=== PATIENT | female | born 1990 | race American Indian/Alaskan Native ===

== ENCOUNTER 2018-08-27 17:46 | Emergency (ER) | payer OTHER ==
[2018-08-27 17:55] VITALS: BP 132/88
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
== END 2018-08-27 21:35 | disposition home or self-care (01) ==
LOC: ED 17:46
DX: S09.90XA Unspecified injury of head, initial encounter (principal); M54.2 Cervicalgia; V49.49XA Driver injured in collision with other motor vehicles in traffic accident, initial encounter; Y93.89 Activity, other specified; Y92.89 Other specified places as the place of occurrence of the external cause; Y99.8 Other external cause status
CPT/HCPCS: 99282

== ENCOUNTER 2019-02-28 02:13 | Emergency (ER) | payer MEDICAID, OTHER ==
[2019-02-28 03:15] LABS: Basophils % (Auto) 0.3 % (0.0-1.8); Eosinophils % (Auto) 0.1 % (0.0-4.3); Hematocrit 35.2 % (30.3-42.9); Hemoglobin 11.7 gm/dl (10.1-14.3); Lymphocytes # (Auto) 0.6 K/mm3 (1.2-5.4); Lymphocytes % (Auto) 6.3 % (13.4-35.0); Mean Corpuscular HGB Conc 33 % (30-34); Mean Corpuscular Volume 82 fl (79-97); Monocytes # (Auto) 0.4 K/mm3 (0.0-0.8); Monocytes % (Auto) 4.3 % (0.0-7.3); Platelet Count 271 K/mm3 (140-440); Red Blood Count 4.32 M/mm3 (3.65-5.03); Red Cell Distribution Width 16.4 % (13.2-15.2)
[2019-02-28 03:49] LABS: Alanine Aminotransferase 13 units/L (7-56); Albumin 3.9 g/dL (3.9-5); BUN/Creatinine Ratio 20; Blood Urea Nitrogen 10 mg/dL (7-17); Calcium 9.4 mg/dL (8.4-10.2); Hemolysis Index 10
[2019-02-28] MEDS ORDERED: NACL 0.9% 1000 ML 1,000 ML ONE (05:02)
[2019-02-28] MEDS ORDERED: ZOFRAN ONE (05:03)
[2019-02-28] MEDS ORDERED: NACL 0.9% 1000 ML 1,000 ML IV ONE ×2 (05:16→06:11)
[2019-02-28] MEDS ORDERED: ZOFRAN IV ONE (05:17)
[2019-02-28 05:22] VITALS: BP 104/55
--- NOTE | 2019-02-28 06:11 | Emergency Department Report ---
ED General Adult HPI - General Chief complaint: Dizziness Stated complaint: DIZZINESS, VOMITING Time Seen by Provider: 02/28/19 06:10 Source: patient Mode of arrival: Ambulatory Limitations: No Limitations - History of Present Illness Initial comments: 29-year-old female complains of lower abdominal cramping associated with diarrhea. She states that she ate some "bad pizza" yesterday afternoon. By 3:00 she was starting to have these symptoms. She denies vaginal discharge or bleeding. She is about 8 weeks by . She denies dysuria. She states that she is now 2 para 1 with no complications of previous and one live child. She denies any other medical problems. She has not unaware of her fever and not had chills. -: hour(s) Location: abdomen Radiation: non-radiation Severity scale (0 -10): 0 Quality: other (cramping) Consistency: now resolved Improves with: none Worsens with: none Associated Symptoms: denies other symptoms, other (diarrhea) Treatments Prior to Arrival: none - Related Data Previous Rx's Medication Instructions Recorded Last Taken Type Amoxicillin [Trimox CAP] 500 mg PO Q12HR #20 capsule 10/26/15 Unknown Rx Neomy/Polymyx B/Hc (Otic) Soln 4 drops TID #1 bottle 10/26/15 Unknown Rx [Cortisporin (Otic) Soln] traMADol [Ultram 50 MG tab] 50 mg PO Q6HR PRN #15 tablet 10/26/15 Unknown Rx Ketorolac [Toradol] 10 mg PO Q6H PRN #15 tablet 08/27/18 Unknown Rx Amoxicillin [Amoxicillin TAB] 875 mg PO BID #20 tablet 11/02/18 Unknown Rx Ciprofloxacin 0.2%(Nf) 2 drops TID 7 Days #1 droperette 11/02/18 Unknown Rx [Ciprofloxacin Otic 0.2%(Nf)] Allergies Allergy/AdvReac Type Severity Reaction Status Date / Time No Known Drug Allergies Allergy Unknown Verified 08/27/18 17:52 ED Review of Systems ROS: Stated complaint: DIZZINESS, VOMITING Other details as noted in HPI Constitutional: denies: chills, fever Eyes: denies: eye pain, eye discharge, vision change ENT: denies: ear pain, throat pain Respiratory: denies: cough, shortness of breath, wheezing Cardiovascular: denies: chest pain, palpitations Endocrine: no symptoms reported Gastrointestinal: abdominal pain, nausea, vomiting, diarrhea Genitourinary: denies: urgency, dysuria, discharge Musculoskeletal: denies: back pain, joint swelling, arthralgia Skin: denies: rash, lesions Neurological: denies: headache, weakness, paresthesias Psychiatric: denies: anxiety, depression Hematological/Lymphatic: denies: easy bleeding, easy bruising ED Past Medical Hx - Past Medical History Previous Medical History?: Yes Hx Hypertension: No Hx Congestive Heart Failure: No Hx Diabetes: No Hx Deep Vein Thrombosis: No Hx Renal Disease: No Hx Sickle Cell Disease: No Hx Seizures: No Hx Asthma: No Hx COPD: No Hx HIV: No Additional medical history: Hx of frequent ear infection - Surgical History Past Surgical History?: No - Social History Smoking Status: Never Smoker Substance Use Type: None - Medications Home Medications: Home Medications Medication Instructions Recorded Confirmed Last Taken Type Amoxicillin [Trimox CAP] 500 mg PO Q12HR #20 capsule 10/26/15 Unknown Rx Neomy/Polymyx B/Hc (Otic) Soln 4 drops TID #1 bottle 10/26/15 Unknown Rx [Cortisporin (Otic) Soln] traMADol [Ultram 50 MG tab] 50 mg PO Q6HR PRN #15 tablet 10/26/15 Unknown Rx Ketorolac [Toradol] 10 mg PO Q6H PRN #15 tablet 08/27/18 Unknown Rx Amoxicillin [Amoxicillin TAB] 875 mg PO BID #20 tablet 11/02/18 Unknown Rx Ciprofloxacin 0.2%(Nf) 2 drops TID 7 Days #1 droperette 11/02/18 Unknown Rx [Ciprofloxacin Otic 0.2%(Nf)] ED Physical Exam - General Limitations: No Limitations General appearance: alert, in no apparent distress - Head Head exam: Present: atraumatic, normocephalic - Eye Eye exam: Present: normal appearance. Absent: scleral icterus - ENT ENT exam: Present: mucous membranes moist - Neck Neck exam: Present: normal inspection. Absent: tenderness, meningismus - Respiratory Respiratory exam: Present: normal lung sounds bilaterally. Absent: respiratory distress - Cardiovascular Cardiovascular Exam: Present: regular rate, normal rhythm. Absent: systolic murmur, diastolic murmur, rubs, gallop - GI/Abdominal GI/Abdominal exam: Present: soft, normal bowel sounds. Absent: distended, tenderness, guarding, rigid, organomegaly, mass, bruit, pulsatile mass, hernia - Extremities Exam Extremities exam: Present: normal inspection - Back Exam Back exam: Present: normal inspection. Absent: CVA tenderness (R), CVA tenderness (L) - Neurological Exam Neurological exam: Present: alert, oriented X3, CN II-XII intact. Absent: motor sensory deficit - Psychiatric Psychiatric exam: Present: normal affect, normal mood - Skin Skin exam: Present: warm, dry, intact, normal color. Absent: rash ED Course Vital Signs 02/28/19 02/28/19 02/28/19 02:20 03:00 05:19 Temperature 100 F H Pulse Rate 125 H 104 H Respiratory 20 16 16 Rate Blood Pressure 128/66 Blood Pressure [Left] O2 Sat by Pulse 97 100 100 Oximetry 02/28/19 05:21 Temperature 98.7 F Pulse Rate 106 H Respiratory 16 Rate Blood Pressure Blood Pressure 104/55 [Left] O2 Sat by Pulse 100 Oximetry - Reevaluation(s) Reevaluation #1: States feels better after IV fluids. 02/28/19 07:26 Reevaluation #2: Distress. To be some subchorionic hemorrhage with a viable 11 week . Follow-up with OB will be necessary. Urine is equivocal. I will culture and place patient on Macrobid. 02/28/19 07:41 Reevaluation #3: Reviewed findings with the patient 02/28/19 07:52 ED Medical Decision Making - Lab Data Result diagrams: 02/28/19 03:01 02/28/19 03:01 Laboratory Results - last 24 hr 02/28/19 02/28/19 02/28/19 03:01 03:01 03:01 WBC 9.4 RBC 4.32 Hgb 11.7 Hct 35.2 MCV 82 MCH 27 L MCHC 33 RDW 16.4 H Plt Count 271 Lymph % (Auto) 6.3 L Burt % (Auto) 4.3 Eos % (Auto) 0.1 Baso % (Auto) 0.3 Lymph # 0.6 L Burt # 0.4 Eos # 0.0 Baso # 0.0 Seg Neutrophils % 89.0 H Seg Neutrophils # 8.4 H Sodium 135 L Potassium 4.1 Chloride 98.9 Carbon Dioxide 22 Anion Gap 18 BUN 10 Creatinine 0.5 L Estimated GFR > 60 BUN/Creatinine Ratio 20 Glucose 129 H Calcium 9.4 Total Bilirubin 0.30 AST 17 ALT 13 Alkaline Phosphatase 57 Total Protein 7.4 Albumin 3.9 Albumin/Globulin Ratio 1.1 HCG, Quant 70693 H Laboratory Results - last 24 hr 02/28/19 02/28/19 02/28/19 03:01 03:01 03:01 WBC 9.4 RBC 4.32 Hgb 11.7 Hct 35.2 MCV 82 MCH 27 L MCHC 33 RDW 16.4 H Plt Count 271 Lymph % (Auto) 6.3 L Burt % (Auto) 4.3 Eos % (Auto) 0.1 Baso % (Auto) 0.3 Lymph # 0.6 L Burt # 0.4 Eos # 0.0 Baso # 0.0 Seg Neutrophils % 89.0 H Seg Neutrophils # 8.4 H Sodium 135 L Potassium 4.1 Chloride 98.9 Carbon Dioxide 22 Anion Gap 18 BUN 10 Creatinine 0.5 L Estimated GFR > 60 BUN/Creatinine Ratio 20 Glucose 129 H Calcium 9.4 Total Bilirubin 0.30 AST 17 ALT 13 Alkaline Phosphatase 57 Total Protein 7.4 Albumin 3.9 Albumin/Globulin Ratio 1.1 HCG, Quant 47987 H Urine Color Urine Turbidity Urine pH Ur Specific [place] Urine Protein Urine Glucose (UA) Urine Ketones Urine Blood Urine Nitrite Urine Bilirubin Urine Urobilinogen Ur Leukocyte Esterase Urine WBC (Auto) Urine RBC (Auto) U Epithel Cells (Auto) Urine Mucus 02/28/19 06:03 WBC RBC Hgb Hct MCV MCH MCHC RDW Plt Count Lymph % (Auto) Burt % (Auto) Eos % (Auto) Baso % (Auto) Lymph # Burt # Eos # Baso # Seg Neutrophils % Seg Neutrophils # Sodium Potassium Chloride Carbon Dioxide Anion Gap BUN Creatinine Estimated GFR BUN/Creatinine Ratio Glucose Calcium Total Bilirubin AST ALT Alkaline Phosphatase Total Protein Albumin Albumin/Globulin Ratio HCG, Quant Urine Color Yellow Urine Turbidity Clear Urine pH 5.0 Ur Specific [place] 1.036 H Urine Protein <15 mg/dl Urine Glucose (UA) Neg Urine Ketones 80 Urine Blood Neg Urine Nitrite Neg Urine Bilirubin Neg Urine Urobilinogen < 2.0 Ur Leukocyte Esterase Neg Urine WBC (Auto) 2.0 Urine RBC (Auto) 2.0 U Epithel Cells (Auto) 3.0 Urine Mucus 1+ - Radiology Data FINDINGS: A single living intrauterine is present with recorded cardiac activity of 176 bpm and crown-rump length of approximately 4 cm, which corresponds to estimated gestational age of 11 weeks 0 days and delivery date of 09/19/2019. A small perigestational hemorrhage measures up to 2.5 cm and involves less than 50% of the gestational sac surface area. No significant free fluid in the pelvis. The cervix is not well visualized. A functional left ovarian cyst measures 2 cm in greatest dimension. The ovaries are otherwise sonographically unremarkable and measure 2.6 x 1.2 x 3.1 cm on the right and 3.2 x 2.2 x 3.3 cm on the left. IMPRESSION: Single living intrauterine with estimated gestational age of 11 weeks 0 days and delivery date of 09/19/2019. Small perigestational hemorrhage involving less than 50% of the gestational sac surface area. This document is electronically signed by Michael Gee MD., February 28 2019 07 :22:24 AM ET Transcribed By: MB Dictated By: MICHAEL GEE MD Electronically Authenticated By: MICHAEL GEE MD Signed Date/Time: 02/28/19 0724 Critical care attestation.: If time is entered above; I have spent that time in minutes in the direct care of this critically ill patient, excluding procedure time. ED Disposition Clinical Impression: 11 weeks gestation of , Dehydration, Gastroenteritis Subchorionic hemorrhage Qualifiers: Fetus number: single or unspecified fetus Trimester: first trimester Qualified Code(s): O41.8X10 - Other specified disorders of amniotic fluid and membranes, first trimester, not applicable or unspecified; O46.8X1 - Other antepartum hemorrhage, first trimester Disposition: DC-01 TO HOME OR SELFCARE Is pt being admited?: No Does the pt Need Aspirin: No Condition: Stable Instructions: Acute Diarrhea (ED), Dehydration (ED), Threatened Miscarriage (ED) Additional Instructions: Increase fluids. Monitor temperature. Return any acute change or problem. Return significant fever or chills. Referrals: KATHRYN MORA [Primary Care Provider] - 3-5 Days AMAN BYRNE MD [Staff Physician] - 2-3 Days Time of Disposition: 07:45
[2019-02-28 07:07] LABS: Bilirubin,Urine NEG (Negative); Blood,Urine NEG (Negative); Color,Urine Yellow (Yellow); Mucus,Urine 1+ /HPF; Protein,Urine <15 mg/dL mg/dL (Negative); Urobilinogen,Urine < 2.0 mg/dL (<2.0)
--- NOTE | 2019-02-28 07:24 | Ultrasound Report ---
PROCEDURE: US OB <= 14 WEEKS FETUS, US OB TRANSVAGINAL TECHNIQUE: Transabdominal and transvaginal grayscale and color Doppler first trimester pelvic ultras ound HISTORY: <8 weeks dizzy COMPARISONS: None FINDINGS: A single living intrauterine is present with recorded cardiac activity of 176 bpm and crown-rump length of approximately 4 cm, which corresponds to estimated gestational age of 11 we eks 0 days and delivery date of 09/19/2019. A small perigestational hemorrhage measures up to 2.5 cm and involves less than 50% of the gestational sac surface area. No significant free fluid in the pelv is. The cervix is not well visualized. A functional left ovarian cyst measures 2 cm in greatest dimension. The ovaries are otherwise sonogra phically unremarkable and measure 2.6 x 1.2 x 3.1 cm on the right and 3.2 x 2.2 x 3.3 cm on the left. IMPRESSION: Single living intrauterine with estimated gestational age of 11 weeks 0 days and delivery d ate of 09/19/2019. Small perigestational hemorrhage involving less than 50% of the gestational sac surface area. This document is electronically signed by Hardeep De La Cruz MD., February 28 2019 07:22:24 AM ET
== END 2019-02-28 08:28 | disposition home or self-care (01) ==
LOC: ED 02:13
DX: O99.611 Diseases of the digestive system complicating pregnancy, first trimester (principal); K92.9 Disease of digestive system, unspecified; E86.0 Dehydration; O41.8X10 Other specified disorders of amniotic fluid and membranes, first trimester, not applicable or unspecified; Z3A.11 11 weeks gestation of pregnancy
CPT/HCPCS: 36415; 76801; 76817; 80053; 81001; 84702; 85025; 87086; 93005; 93010; 96361; 96374; 99284; J2405; J7030

== ENCOUNTER 2019-09-17 07:16 | Inpatient (IN) | payer MEDICAID ==
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
[2019-09-17] MEDS ORDERED: OXYTOCIN DRIP 30 UNITS/500 ML BAG IV SCH (09:00)
[2019-09-17] MEDS ORDERED: OXYTOCIN 20 UNIT/1000ML DRIP 20 UNITS/1,000 ML BAG IV SCH (09:00)
[2019-09-17] MEDS ORDERED: TERBUTALINE 1 MG/1 ML INJ SUB-Q PRN (09:30)
[2019-09-17] MEDS ORDERED: ePHEDrine SULFATE 50 MG/1 ML INJ IV PRN (09:30)
[2019-09-17] MEDS ORDERED: fentaNYL 100 MCG/2 ML INJ IV PRN (09:30)
[2019-09-17] MEDS ORDERED: BUTORPHANOL 2 MG/1 ML INJ IV PRN (09:30)
[2019-09-17] MEDS ORDERED: TERBUTALINE 1 MG/1 ML INJ IVP PRN (09:30)
[2019-09-17] MEDS ORDERED: NALOXONE 0.4 MG/1 ML INJ IV PRN (09:30)
[2019-09-17] MEDS ORDERED: LIDOCAINE (2%) 20 MG/1 ML VIAL 20 ML MDV INFILTRATI NR (09:30)
[2019-09-17] MEDS ORDERED: ONDANSETRON 4 MG/2 ML INJ IV PRN (09:30)
[2019-09-17 09:31] LABS: Hematocrit 32.8 % (30.3-42.9); Hemoglobin 10.6 gm/dl (10.1-14.3); Mean Corpuscular HGB Conc 32 % (30-34); Mean Corpuscular Volume 91 fl (79-97); Platelet Count 191 K/mm3 (140-440); Red Blood Count 3.62 M/mm3 (3.65-5.03); Red Cell Distribution Width 17.9 % (13.2-15.2)
[2019-09-17] MEDS ORDERED: AMPICILLIN/NS 2 GM/100 ML 2 GM/100 ML BAG IV ONE (10:00)
[2019-09-17] MEDS ORDERED: MINERAL OIL 30 ML ORAL LIQD PO PRN (10:00)
[2019-09-17] MEDS ORDERED: DINOPROSTONE 10 MG VAG SUPP VG ONE (10:00)
[2019-09-17] MEDS: LACTATED RINGERS 1,000 ML IV SCH ×3 (10:31→23:00)
[2019-09-17] MEDS ORDERED: ACETAMINOPHEN 325 MG TAB PO PRN (12:29)
[2019-09-17] MEDS ORDERED: AMPICILLIN/NS 1 GM/50 ML 1 GM/50 ML BAG IV SCH (14:00)
--- NOTE | 2019-09-18 08:08 | Event Note ---
Date: 09/18/19 Patient here this am in as good as spirits as can be according to circumstances of baby father committing suicide this Saturday on her due date She hs been IOL yesterday with cervidil and pit low dose Will feed this am Restart pitocin this am and consider arom this afternoon Social service consult obtained [employer] services requested NO signs and sx of Suicide nor homicidal ideations Support at bedside with sister and daughter
[2019-09-18] MEDS ORDERED: BUPIVACAINE/PF (0.25%) 2.5 MG/ML 10 ML VIAL INFILTRATI ONE ×2 (15:09→20:27)
[2019-09-18] MEDS ORDERED: ePHEDrine SULFATE 50 MG/1 ML INJ IV PRN (15:30)
[2019-09-18] MEDS ORDERED: NALOXONE 2 MG/2 ML INJ IV PRN (15:30)
--- NOTE | 2019-09-18 15:32 | Anesthesia Consultation ---
Anesthesia Consult and Med Hx Date of service: 09/18/19 - Airway Anesthetic Teeth Evaluation: Good ROM Head & Neck: Adequate Mental/Hyoid Distance: Adequate Mallampati Class: Class II Intubation Access Assessment: Good - Pulmonary Exam CTA: Yes - Cardiac Exam Cardiac Exam: RRR - Pre-Operative Health Status ASA Pre-Surgery Classification: ASA2, Emergency Proposed Anesthetic Plan: Epidural - Pulmonary Hx Asthma: No COPD: No Hx Pneumonia: No - Cardiovascular System Hx Hypertension: No - Central Nervous System Hx Seizures: No Hx Psychiatric Problems: No - Endocrine Hx Renal Disease: No Hx End Stage Renal Disease: No Hx Hypothyroidism: No Hx Hyperthyroidism: No - Hematic Hx Anemia: No Hx Sickle Cell Disease: No - Other Systems Hx Alcohol Use: No
[2019-09-18] MEDS ORDERED: fentaNYL-BUPIV 2 MCG/ML-0.125% 200 MCG/100 ML BAG EPIDURAL SCH (16:00)
[2019-09-18] MEDS: LACTATED RINGERS 1,000 ML IV SCH (19:47)
--- NOTE | 2019-09-18 22:25 | Procedure Note ---
OB Delivery Note - Delivery Date of Delivery: 09/18/19 Surgeon: [facility] Estimated blood loss: 200cc - Vaginal Delivery presentation: vertex Delivery position: OA Intrapartum events: mult.variable deceleratio Delivery induction: AROM Delivery augmentation: rupture of membranes Delivery monitor: external FHT, external uterine Route of delivery: Delivery placenta: spontaneous Delivery cord: 3 umbilical vessels Episiotomy: none Delivery laceration: none Anesthesia: epidural Delivery comments: viable female delivered over intact perineum at 2137 and placed on maternal abdomen. cord clamped and cut when done pulsing. Placenta delivered spontaneously and intact with 3vc. Apgars 7,9. No lacerations. Excellent hemostasis. Pt tolerated procedure well. - Infant A at 1 minute: 7 at 5 minutes: 9 Infant Gender: Female
[2019-09-19] MEDS ORDERED: BISACODYL 10 MG RECT SUPP PR PRN (01:57)
[2019-09-19] MEDS ORDERED: ACETAMINOPHEN 325 MG TAB PO PRN (01:57)
[2019-09-19] MEDS ORDERED: ONDANSETRON 4 MG/2 ML INJ IV PRN (01:57)
[2019-09-19] MEDS ORDERED: WITCH HAZEL/ GLYCERIN PAD TP PRN (01:57)
[2019-09-19] MEDS ORDERED: PROMETHAZINE 25 MG RECT SUPP PR PRN (01:57)
[2019-09-19] MEDS ORDERED: diphenhydrAMINE 25 MG CAP PO PRN (01:57)
[2019-09-19] MEDS ORDERED: MAGNESIUM HYDROXIDE (MOM) ORAL LIQD UDC PO PRN (01:57)
[2019-09-19] MEDS ORDERED: LANOLIN/ZINC/DIMETHICONE (LANSINOH) 7 GM TP PRN (01:57)
[2019-09-19] MEDS ORDERED: PROMETHAZINE 25 MG TAB PO PRN (01:57)
[2019-09-19] MEDS: IBUPROFEN 600 MG TAB PO SCH ×3 (02:07→17:15)
[2019-09-19] MEDS: HYDROcodone/ACETAMINOPHEN 5-325 MG TAB PO PRN ×2 (05:33→21:35)
[2019-09-19] MEDS: DOCUSATE SODIUM 100 MG CAP PO SCH ×2 (09:40→21:35)
[2019-09-19] MEDS: PRENATAL VIT27-FE FUMARATE-FOLIC ACID VIT TAB PO SCH (09:41)
[2019-09-19 11:33] LABS: Hematocrit 30.7 % (30.3-42.9); Hemoglobin 10.3 gm/dl (10.1-14.3)
--- NOTE | 2019-09-19 13:34 | Post Anesthesia Evaluation ---
- Post Anesthesia Evaluation Patient Participated: Yes Airway Patent: Yes Stable Respiratory Function: Yes Nausea/Vomiting: No Temp > 96.8F: Yes Pain Manageable: Yes Adequeate Hydration: Yes Anesthesia Complications: No Block Receding Appropriately: Yes Patient on Ventilator: No
--- NOTE | 2019-09-19 16:11 | Progress Note ---
Assessment and Plan PPD 1 s/p Doing well. Plan for discharge on tomorrow. Subjective - Subjective Date of service: 09/19/19 Interval history: Pt was induced for decreased movement Patient reports: appetite normal, voiding normally, pain well controlled, ambulating normally [place]: doing well Objective - Vital Signs Latest vital signs: Vital Signs Temp Pulse Resp BP BP Pulse Ox 09/19/19 09:40 20 09/19/19 08:55 97.3 F L 68 20 101/61 09/19/19 00:30 99 F 94 H 18 125/59 95 09/18/19 23:45 89 118/72 09/18/19 23:30 91 H 111/72 09/18/19 23:15 89 107/57 09/18/19 23:00 90 100/51 09/18/19 22:45 98.2 F 94 H 16 105/52 105/52 09/18/19 22:30 100 H 16 114/60 114/60 09/18/19 22:15 109 H 16 134/63 134/63 09/18/19 22:04 100 H 130/55 09/18/19 22:00 100 H 18 130/55 09/18/19 21:45 98.8 F 102 H 18 126/57 126/57 09/18/19 21:33 89 100 09/18/19 21:18 105 H 100 09/18/19 21:13 89 100 09/18/19 21:08 116 H 100 09/18/19 21:04 96 H 123/74 09/18/19 21:03 97 H 100 09/18/19 20:58 95 H 100 09/18/19 20:53 103 H 100 09/18/19 20:48 94 H 100 09/18/19 20:43 98 H 100 09/18/19 20:38 111 H 100 09/18/19 20:35 82 114/63 09/18/19 20:33 105 H 100 09/18/19 20:28 87 100 09/18/19 20:23 100 H 100 09/18/19 20:18 99 H 100 09/18/19 20:13 79 100 09/18/19 20:08 77 100 09/18/19 20:04 77 111/68 09/18/19 20:03 80 100 09/18/19 19:58 83 100 09/18/19 19:53 90 100 09/18/19 19:48 83 85 09/18/19 19:47 86 100 09/18/19 19:42 79 100 09/18/19 19:37 102 H 100 09/18/19 19:34 82 110/72 09/18/19 19:32 85 100 09/18/19 19:27 82 100 09/18/19 19:22 90 100 09/18/19 19:17 100 H 100 09/18/19 19:12 77 100 09/18/19 19:07 76 100 09/18/19 19:04 104 H 120/77 09/18/19 19:02 71 100 09/18/19 18:57 74 100 09/18/19 18:52 80 100 09/18/19 18:47 86 100 09/18/19 18:42 103 H 100 09/18/19 18:37 107 H 100 09/18/19 18:35 71 109/56 09/18/19 18:32 78 100 09/18/19 18:27 80 100 09/18/19 18:22 77 100 09/18/19 18:17 83 100 09/18/19 18:12 73 100 09/18/19 18:07 75 100 09/18/19 18:04 72 106/59 09/18/19 18:02 69 106/57 100 09/18/19 17:49 75 100 09/18/19 17:44 72 100 09/18/19 17:39 78 100 09/18/19 17:34 78 100 09/18/19 17:29 68 100 09/18/19 17:24 83 100 09/18/19 17:19 77 100 09/18/19 17:14 64 100 09/18/19 17:09 63 100 09/18/19 17:04 73 100 09/18/19 17:01 142 H 129/74 09/18/19 17:00 88 157/70 09/18/19 16:59 95 H 100 09/18/19 16:57 77 123/60 09/18/19 16:55 79 122/60 09/18/19 16:54 68 100 09/18/19 16:53 68 121/61 09/18/19 16:51 58 L 119/58 09/18/19 16:49 66 117/58 100 10/25/19 16:47 83 113/69 09/18/19 16:45 65 114/61 09/18/19 16:44 66 100 09/18/19 16:43 70 119/67 09/18/19 16:41 75 120/63 09/18/19 16:39 67 111/59 100 09/18/19 16:37 77 110/58 09/18/19 16:35 71 112/58 09/18/19 16:34 62 100 09/18/19 16:33 61 112/58 09/18/19 16:31 64 117/62 09/18/19 16:30 88 120/58 09/18/19 16:29 73 100 09/18/19 16:27 70 106/56 09/18/19 16:25 66 99/53 09/18/19 16:24 62 100 09/18/19 16:23 65 100/53 09/18/19 16:21 63 103/56 09/18/19 16:19 61 102/56 100 09/18/19 16:17 59 L 103/55 09/18/19 16:15 59 L 102/54 09/18/19 16:14 61 100 09/18/19 16:13 68 105/57 09/18/19 16:11 56 L 106/56 09/18/19 16:09 63 108/55 100 09/18/19 16:07 59 L 105/58 09/18/19 16:05 67 102/57 09/18/19 16:04 65 100 Intake and Output 09/19/19 09/19/19 09/19/19 06:59 14:59 22:59 Intake Total 320 Output Total 2600 Balance -2600 320 Intake: Oral 320 Output: Urine 2600 Indwelling Catheter 800 Void 1800 Other: Total, Intake Amount 320 Total, Output Amount 800 # Voids Void 1 2 - Exam Breasts: Present: deferred Cardiovascular: Present: Regular rate, Normal S1, Normal S2 Lungs: Present: Clear to auscultation, Normal air movement Abdomen: Present: normal appearance, soft Vulva: both: normal Uterus: Present: normal, firm Extremities: Present: normal Incision: Present: normal, dry, intact
--- NOTE | 2019-09-19 16:16 | Discharge Summary ---
Providers - Providers Date of Admission: 09/17/19 07:19 Date of discharge: 09/20/19 Attending physician: CARLOS RAMOS 09/19/19 11:38 Consult to Case Management [CONS] Routine Services Needed at Discharge: [employer] Notified:: [phone] Phone number called:: [phone] Additional Physician Instructions: sucidal in family Primary care physician: CARLOS RAMOS Hospitalization Reason for admission: induction of labor Delivery: Episiotomy: none Laceration: 1st degree Discharge diagnosis: IUP at term delivered Elbert baby: male Hospital course: Unremarkable Condition at discharge: Good Disposition: DC-01 TO HOME OR SELFCARE Plan - Discharge Medications Prescriptions: Ibuprofen [Motrin 600 MG tab] 600 mg PO Q6H #30 tablet HYDROcodone/APAP 5-325 [[place] 5-325 mg TAB] 2 each PO Q6H PRN #14 tablet PRN Reason: Pain, Moderate (4-6) - Provider Discharge Summary Activity: routine, no sex for 6 weeks, no heavy lifting 4 weeks, no strenuous exercise Diet: routine Instructions: routine Additional instructions: [] Smoking cessation referral if applicable(refer to patient education folder for contact #) [] Refer to [facility] Booklet Call your doctor immediately for: * Fever > 100.5 * Heavy vaginal bleeding ( >1 pad per hour) * Severe persistent headache * Shortness of breath * Reddened, hot, painful area to leg or breast * Drainage or odor from incision. * Keep incision clean and dry at all times and follow doctor's instructions regarding bathing/showering - Follow up plan Follow up: CARLOS RAMOS MD [Primary Care Provider] - 6 Weeks
[2019-09-20] MEDS: IBUPROFEN 600 MG TAB PO SCH ×2 (02:35→15:07)
[2019-09-20] MEDS ORDERED: TETANUS,DIPH,PERTUSS(ACELL) VACCINE 0.5 ML SYRINGE IM ONE (06:00)
[2019-09-20] MEDS: HYDROcodone/ACETAMINOPHEN 5-325 MG TAB PO PRN (06:30)
[2019-09-20 08:55] VITALS: BP 122/75
[2019-09-20] MEDS: DOCUSATE SODIUM 100 MG CAP PO SCH (09:15)
[2019-09-20] MEDS: PRENATAL VIT27-FE FUMARATE-FOLIC ACID VIT TAB PO SCH (09:16)
[2019-09-20] MEDS ORDERED: FLU VACC QUAD 2019-20 (3 YR UP)/PF 60 MCG/0.5 ML SYRINGE IM ONE (12:00)
== END 2019-09-20 17:42 | disposition home or self-care (01) | DRG 775 ==
LOC: TRG 07:16 → LD 07:19 → OB 09-19 01:43
PROVIDERS: ADMIT Obstetrics & Gynecology; ATTEND Obstetrics & Gynecology
PROC: 10E0XZZ Delivery of Products of Conception, External Approach (ICD-10-PCS; principal; 2019-09-18)
PROC: 10907ZC Drainage of Amniotic Fluid, Therapeutic from Products of Conception, Via Natural or Artificial Opening (ICD-10-PCS; 2019-09-18)
PROC: 3E0R3BZ Introduction of Anesthetic Agent into Spinal Canal, Percutaneous Approach (ICD-10-PCS; 2019-09-18)
PROC: 00HU33Z Insertion of Infusion Device into Spinal Canal, Percutaneous Approach (ICD-10-PCS; 2019-09-18)
PROC: 3E0P7VZ Introduction of Hormone into Female Reproductive, Via Natural or Artificial Opening (ICD-10-PCS; 2019-09-18)
PROC: 3E0234Z Introduction of Serum, Toxoid and Vaccine into Muscle, Percutaneous Approach (ICD-10-PCS; 2019-09-20)
DX: O76 Abnormality in fetal heart rate and rhythm complicating labor and delivery (principal); O36.8130 Decreased fetal movements, third trimester, not applicable or unspecified; Z82.49 Family history of ischemic heart disease and other diseases of the circulatory system; Z83.2 Family history of diseases of the blood and blood-forming organs and certain disorders involving the immune mechanism; Z3A.40 40 weeks gestation of pregnancy; Z37.0 Single live birth; Z23 Encounter for immunization
CPT/HCPCS: 36415; 59200; 85014; 85018; 85027; 86850; 86900; 86901; 90686; 90715; G0378; J2405; J2590; J3010; J7120